=== PATIENT | female | born 1975 | race Two or more races ===

== ENCOUNTER 2022-08-15 08:39 | Outpatient (CLI) | payer OTHER | END 2022-08-15 08:40 | disposition home or self-care (01) | LOC: CSHWCC 08:39 | PROVIDERS: ATTEND Nurse Practitioner Family | DX: L98.499 Non-pressure chronic ulcer of skin of other sites with unspecified severity (principal); Z93.2 Ileostomy status | CPT/HCPCS: 99204; G0463 ==